=== PATIENT | female | born 1950 | race Caucasian/White ===

== ENCOUNTER 2018-05-31 22:50 | Emergency (ER) | payer MEDICAID ==
[~2018-05-31] VITALS: Ht 152.4 cm; Wt 72.6 kg
[~2018-05-31 22:50] MED LIST: COL100 PO; GLIPIZIDE10 MG PO; HYDROCHLOROTHIA25 MG; METFORMIN ER500 M1; NORCO1 TA2 PO; PRI20 PO; ZES20 PO
[2018-05-31 22:52] VITALS: Ht 152.4 cm; Wt 72.6 kg
[2018-05-31 23:54] LABS: BASOPHIL % 0.5 % (0-2); PLATELET COUNT 229 x10^3mcL (130-400); RED CELL DISTRIBUTION WIDTH 13.8 % (11.5-14.5)
[2018-06-01 00:05] LABS: ALBUMIN 3.9 g/dL (3.4-5.0); ALKALINE PHOSPHATASE 77 U/L (46-116); ALT/SGPT 37 U/L (14-59); AST/SGOT 16 U/L (15-37); BILIRUBIN TOTAL 0.4 mg/dL (0.20-1.00); CALCIUM 9.4 mg/dL (8.5-10.1); CARBON DIOXIDE 30.2 mmol/L (21-32); CHLORIDE SERUM 105 mmol/L (98-107); CREATININE SERUM 0.8 mg/dL (0.6-1.0); GFR1 > 60 mL/min; GLUCOSE SERUM 175 mg/dL (74-106); POTASSIUM SERUM 3.4 mmol/L (3.5-5.1); SODIUM SERUM 143 mmol/L (136-145); TOTAL PROTEIN, SERUM 7.3 g/dL (6.4-8.2)
[2018-06-01 04:54] VITALS: BP 150/79
== END 2018-06-01 04:54 | disposition home or self-care (01) ==
LOC: ED 22:50
PROVIDERS: Emergency Medicine
DX: M79.89 Other specified soft tissue disorders (principal); L53.9 Erythematous condition, unspecified; R07.89 Other chest pain; I10 Essential (primary) hypertension; E11.9 Type 2 diabetes mellitus without complications
CPT/HCPCS: 83880; 85378; J1885; J2060; Q0092; Q9967

== ENCOUNTER 2018-07-27 14:25 | Emergency (ER) | payer MEDICAID ==
[~2018-07-27] VITALS: Ht 157.5 cm; Wt 70.3 kg
[2018-07-27 14:27] VITALS: Ht 157.5 cm; Wt 70.3 kg
[2018-07-27 15:44] VITALS: BP 139/80
== END 2018-07-27 15:44 | disposition home or self-care (01) ==
LOC: ED 14:25
DX: B01.9 Varicella without complication (principal); B02.9 Zoster without complications; I10 Essential (primary) hypertension; E11.9 Type 2 diabetes mellitus without complications; Z88.6 Allergy status to analgesic agent
CPT/HCPCS: J1885

== ENCOUNTER 2018-12-22 21:40 | Emergency (ER) | payer MEDICAID ==
[~2018-12-22] VITALS: Ht 162.6 cm; Wt 70.3 kg
[2018-12-22 21:45] VITALS: Ht 162.6 cm; Wt 70.3 kg
[2018-12-22 23:39] VITALS: BP 138/70
== END 2018-12-22 23:39 | disposition home or self-care (01) ==
LOC: ED 21:40
DX: J06.9 Acute upper respiratory infection, unspecified (principal); J40 Bronchitis, not specified as acute or chronic; Z88.5 Allergy status to narcotic agent; E11.9 Type 2 diabetes mellitus without complications
CPT/HCPCS: 87804; J1885